=== PATIENT | female | born 1990 | race Caucasian/White ===

== ENCOUNTER → 2016-06-22 | Outpatient (CLI) | payer BC ==
[~2016-06-22] MED LIST: albuterol
[2016-06-22 18:43] LABS: URINE APPEARANCE CLEAR (CLEAR); URINE BILIRUBIN NEG (NEG); URINE COLOR YELLOW; URINE EPITHELIAL CELL AUTO >30 /lpf (0-5); URINE NITRITE NEG (NEG); URINE SPECIFIC GRAVITY 1.018 (1.000-1.030); UROBILINOGEN NEG (NEG)
[2016-06-22 18:47] LABS: MANUAL MICROSCOPIC REQUIRED? NO; REVIEW REQ? NO
== END | disposition home or self-care (01) ==
LOC: C.LABSPEC 16:45
PROVIDERS: ATTEND Obstetrics & Gynecology
DX: Z34.81 Encounter for supervision of other normal pregnancy, first trimester (principal)

== ENCOUNTER → 2016-06-29 | Outpatient (CLI) | payer BC ==
[2016-06-29 13:27] LABS: BASO % 0.2 %; BASO ABS # 0.02 K/uL (0-0.2); COMPLETE YES; EOS % 1.1 %; IG% 0.2 %; LYMPH % 23.9 %; LYMPH ABS # 2.18 K/uL (1.2-3.4); MEAN CELL VOLUME 90.3 fL (80-100); MEAN CORPUSCULAR HEMOGLOBIN 30.4 pg (25-34); MEAN CORPUSCULAR HGB CONC 33.7 g/dl (32-36); MEAN PLATELET VOLUME 12.7 fL (7.4-10.4); NEUT % 69.6 %; PLATELET COUNT 199 K/uL (130-400); RED BLOOD COUNT 4.21 M/uL (4.2-5.4); WHITE BLOOD COUNT 9.13 K/uL (4.8-10.8)
== END | disposition home or self-care (01) ==
LOC: C.LAB1850 12:16
PROVIDERS: ATTEND Obstetrics & Gynecology
DX: Z34.81 Encounter for supervision of other normal pregnancy, first trimester (principal); Z01.419 Encounter for gynecological examination (general) (routine) without abnormal findings; R87.616 Satisfactory cervical smear but lacking transformation zone

== ENCOUNTER → 2016-06-29 | Outpatient (CLI) | payer BC ==
[2016-07-02 02:40] LABS: CHLAMYDIA TRACH RNA*** NOT DETECTED (NOT DETECTED); GC (NEIS GONORRHOEAE)RNA** NOT DETECTED (NOT DETECTED)
== END | disposition home or self-care (01) ==
LOC: C.LABSPEC 15:29
PROVIDERS: ATTEND Obstetrics & Gynecology
DX: Z34.81 Encounter for supervision of other normal pregnancy, first trimester (principal)

== ENCOUNTER → 2016-08-26 | Outpatient (CLI) | payer BC ==
[2016-08-26 19:58] LABS: GTGD 50 Grams
== END | disposition home or self-care (01) ==
LOC: C.LAB1850 14:00
PROVIDERS: ATTEND Obstetrics & Gynecology
DX: Z34.82 Encounter for supervision of other normal pregnancy, second trimester (principal)

== ENCOUNTER → 2016-09-09 | Outpatient (CLI) | payer BC | END | disposition home or self-care (01) | LOC: C.LAB1850 09:09 | PROVIDERS: ATTEND Obstetrics & Gynecology | DX: O28.1 Abnormal biochemical finding on antenatal screening of mother (principal); Z3A.00 Weeks of gestation of pregnancy not specified ==

== ENCOUNTER → 2016-11-15 | Outpatient (CLI) | payer BC ==
[2016-11-15 10:34] LABS: HEMATOCRIT 34.8 % (37-47)
[2016-11-15 15:14] LABS: URINE APPEARANCE CLEAR (CLEAR); URINE BILIRUBIN NEG (NEG); URINE COLOR YELLOW; URINE NITRITE NEG (NEG); URINE PH 6.5 (4.5-7.5); URINE SPECIFIC GRAVITY 1.011 (1.000-1.030); UROBILINOGEN NEG (NEG)
[2016-11-15 15:16] LABS: MANUAL MICROSCOPIC REQUIRED? NO; REVIEW REQ? YES
[2016-11-15 15:25] LABS: URINE EPITHELIAL CELL AUTO 20-30 /lpf (0-5)
== END | disposition home or self-care (01) ==
LOC: C.LAB1850 09:15
PROVIDERS: ATTEND Obstetrics & Gynecology
DX: Z34.82 Encounter for supervision of other normal pregnancy, second trimester (principal)

== ENCOUNTER → 2017-01-13 | Outpatient (CLI) | payer BC, OTHER | END | disposition home or self-care (01) | LOC: C.LABSPEC 16:12 | PROVIDERS: ATTEND Obstetrics & Gynecology | DX: O24.410 Gestational diabetes mellitus in pregnancy, diet controlled (principal); Z3A.00 Weeks of gestation of pregnancy not specified ==

== ENCOUNTER 2017-02-03 10:23 | Inpatient (IN) | payer BC ==
[~2017-02-03] VITALS: Ht 162.6 cm; Wt 76.0 kg
[2017-02-03] MEDS ORDERED: LACTATED RINGER'S 1000ML 1,000 ML IV PRN (10:50)
[2017-02-03] MEDS ORDERED: LACTATED RINGER'S 1000ML 1,000 ML IV SCH (10:50)
[2017-02-03 11:16] LABS: HEMATOCRIT 36.5 % (37-47); MEAN CELL VOLUME 90.3 fL (80-100); MEAN CORPUSCULAR HEMOGLOBIN 29.7 pg (25-34); MEAN CORPUSCULAR HGB CONC 32.9 g/dl (32-36); PLATELET COUNT 144 K/uL (130-400); RED BLOOD COUNT 4.04 M/uL (4.2-5.4); WHITE BLOOD COUNT 16.94 K/uL (4.8-10.8)
[2017-02-03] MEDS ORDERED: EpHEDrine SULFATE INJ 50 MG/ML AMP ONE (11:21)
[2017-02-03] MEDS ORDERED: BUPIVACAINE 0.25% 30 ML VIAL ONE (11:21)
[2017-02-03] MEDS ORDERED: FENTANYL 2MCG/ML ROPIV 1.25MG/ML 100ML BAG EPI ONE (11:21)
[2017-02-03] MEDS ORDERED: FENTANYL CITRATE INJ 50 MCG/1 ML 2 ML VIAL ONE (11:21)
[2017-02-03 12:10] VITALS: Ht 162.6 cm; Wt 76.0 kg
[2017-02-03] MEDS ORDERED: DiphenhydrAMINE HCL 50 MG/ML VIAL IV PRN (12:15)
[2017-02-03] MEDS ORDERED: LACTATED RINGER'S 1000ML 500 ML IV PRN (12:15)
[2017-02-03] MEDS ORDERED: EpHEDrine SULFATE INJ 50 MG/ML AMP IV PRN (12:15)
[2017-02-03] MEDS ORDERED: FENTANYL 2MCG/ML ROPIV 1.25MG/ML 100ML BAG EPI PRN (12:15)
[2017-02-03] MEDS ORDERED: NALOXONE HCL INJ 0.4 MG/1 ML VIAL/CARP IV PRN (12:15)
[2017-02-03] MEDS ORDERED: NALOXONE HCL INJ 1 MG in SODIUM CHLORIDE 0.9% 1000ML 1,000 ML IV PRN (12:15)
[2017-02-03] MEDS ORDERED: NALBUPHINE HCL INJ 10 MG/ML AMP IV PRN (12:15)
[2017-02-03] MEDS ORDERED: albuterol (12:38)
[2017-02-03] MEDS ORDERED: OXYTOCIN 30 UNITS/500ML NSS IV ONE (14:31)
[2017-02-03] MEDS ORDERED: ACETAMINOPHEN 325 MG TAB PO PRN (15:30)
[2017-02-03] MEDS ORDERED: DIPHTHERIA/TETANUS/PERTUSSIS 0.5 ML SYR/VIAL IM. ONE (15:30)
[2017-02-03] MEDS ORDERED: BENZOCAINE 20% AER SPR 82.5 GM CAN EXT PRN (15:30)
[2017-02-03] MEDS ORDERED: LANOLIN OINT EXT PRN ×2 (15:30)
[2017-02-03] MEDS ORDERED: HYDROCORTISONE ACETATE 25 MG SUPP PR PRN (15:30)
[2017-02-03] MEDS ORDERED: OXYCODONE/ACETAMINOPHEN 5-325 TAB PO PRN (15:30)
[2017-02-03] MEDS ORDERED: SUPERCREAM 0.870 % 15GM JAR EXT PRN (15:30)
[2017-02-03] MEDS ORDERED: OXYTOCIN 30 UNITS/500ML NSS IV PRN (15:30)
--- NOTE | 2017-02-03 15:43 | Medical Student: [facility] ---
Medical Student Delivery Note Pre-op Dx: Term IUP at 39-5, spontaneous onset of labor Post-op Dx: Same Procedure: epidural, Pitocin augmentation, /, bilateral labial repair Surgeon: Dr. Mcnair Anesthesia: epidural EBL: 250cc Procedure: Pt is a E5G7-2-4-1 who presented to labor and delivery in active labor at 39-5. She underwent epidural anesthesia and Pitocin augmentation. Pt progressed to C/C/+2 and pushed for approximately 20 minutes to delivery of a viable female infant over an intact perineum in left occiput anterior position. There was no nuchal cord. The nose and mouth were bulb suctioned. The rest of the infant was delivered without difficulty. The infant was placed on the maternal abdomen and the cord was clamped and cut by the father of the . The placenta was delivered S/I/3VC. Fundus was firm and lochia was minimal. A bilateral labial tear was repaired in the standard fashion using 4-0 Vicryl. Mother was doing well at the end of the delivery. Infant's cry was weak and therefore taken to the nursery for CPAP. Apgars 5/6/7. Weight pending.
--- NOTE | 2017-02-03 17:56 | Anesthesia Procedure Note ---
Anesthesia Epidural Removal Nt Date & Time Feb 03, 2017 at 17:56 Vital Signs Pain Intensity: 10.0 Notes Mental Status: alert / awake / arousable, participated in evaluation Nausea / Vomiting: adequately controlled Pain: adequately controlled Airway Patency, RR, SpO2: stable & adequate BP & HR: stable & adequate Hydration State: stable & adequate Neuraxial Anesthesia: was administered, sensory block is resolving Anesthetic Complications: no major complications apparent, pt satisfied with anesthetic care Epidural: removed without complications, with tip intact
[2017-02-03] MEDS: IBUPROFEN 600 MG TAB PO PRN (18:36)
[2017-02-03 18:43] VITALS: BP 118/81; PULSE 125; TEMP 37.7
--- NOTE | 2017-02-03 18:55 | DELIVERY SUMMARY ---
DATE OF OPERATION: 02/03/2017 PREOPERATIVE DIAGNOSIS: 1. Intrauterine at 39-5/7 weeks. 2. Spontaneous rupture of membranes with active labor. 3. Previous history of delivery for cephalopelvic disproportion. POSTOPERATIVE DIAGNOSES: Same. PROCEDURES: 1. Epidural anesthesia. 2. Normal spontaneous vaginal delivery. 3. Bilateral labial laceration with repair. SURGEON: Olga Mcnair MD. ANESTHESIA: Epidural. ESTIMATED BLOOD LOSS: 400 mL. DESCRIPTION OF PROCEDURE: The patient presented to labor and delivery noting leaking of clear fluid and onset of contractions. She was 4 cm in the office and was evaluated and found to be 5-6, 90%, -2 station. She was admitted for labor. She was GBS negative. She underwent an epidural anesthesia and then progressed to complete, complete, +1-2 station. Her EFM was always Category 1. She was allowed to labor down for 45 minutes and then pushed effectively to deliver a viable female infant in MIRZA presentation. There was no nuchal cord. The nose and mouth were bulb suctioned and the rest of the were then delivered without difficulty. The was placed on the maternal abdomen for drying and attention and the cord was clamped and cut at 1 minute of life. Cord blood and blood gases were obtained. Placenta was delivered spontaneously intact with a 3-vessel cord. Cervix, sulci, rectum and perineum were examined and found to be intact. There was a small hematoma about the size of a grape right at the posterior introitus that was not enlarging and was just observed. Bilateral labial lacerations were repaired with 4-0 and 3-0 Vicryl in an interrupted fashion. Hemostasis obtained with dilute Pitocin and fundal massage. Apgars and weight pending at the time of this dictation. Mother and baby doing well at the end of the delivery. I attest to the content of the Intraoperative Record and any orders documented therein. Any exceptions are noted below. MTDD
[2017-02-03 19:30] VITALS: BP 119/75; PULSE 84; TEMP 37.1
[2017-02-03] MEDS: DOCUSATE SODIUM 100 MG CAP PO SCH (20:32)
[2017-02-03 23:30] VITALS: BP 105/70; PULSE 96; TEMP 36.8
[2017-02-04 03:45] VITALS: BP 103/71; PULSE 88; TEMP 36.8
[2017-02-04] MEDS: IBUPROFEN 600 MG TAB PO PRN ×4 (03:50→20:13)
[2017-02-04 06:40] LABS: HEMATOCRIT 30.2 % (37-47)
--- NOTE | 2017-02-04 07:00 | Medical Student: [facility] ---
Med Student TECHNICAL WRITER Progress Nt Date of Service Feb 04, 2017. Subjective conversation w/ patient Notes: 26yo V8M0-7-5-3 post- day 1 of at 39.5. Pt is feeling "well." Pt reports some moderate cramping during the night controlled with Motrin. Ambulating w/o lightheadedness or dizziness. Eating a regular diet w/o nausea or vomiting. Slept OK last night. No BM since delivery. Voiding w/o difficulty or pain. Bleeding/lochia described by pt as "heavy". Pt is currently using a breast pump and plans to breast feed . Denies fever, chills, and calf pain. Rest of ROS is negative. Objective Vital Signs Date Time Temp Pulse Resp B/P (MAP) Pulse Ox O2 Delivery O2 Flow Rate FiO2 02/04/17 03:45 36.8 88 18 103/71 (82) Room Air 02/03/17 23:30 36.8 96 16 105/70 (82) Room Air 02/03/17 23:30 Room Air 02/03/17 19:30 37.1 84 16 119/75 (90) Room Air 02/03/17 18:50 Room Air 02/03/17 18:43 37.7 125 20 118/81 (93) Room Air Physical Exam General Appearance: WELL-APPEARING, WD/WN, NO APPARENT DISTRESS Respiratory/Chest: lungs clear, normal breath sounds Cardiovascular: regular rate, rhythm, no murmur Abdomen: normal bowel sounds, non tender, soft Fundus: Firm, Non-Tender, Relation to Umbilicus (right of midline and one finger below umbilicus) Extremities: no pedal edema, no calf tenderness Laboratory Results Last 24 Hours Test 02/03/17 11:02 02/04/17 06:29 White Blood Count 16.94 K/uL Red Blood Count 4.04 M/uL Hemoglobin 12.0 g/dL 10.1 g/dL Hematocrit 36.5 % 30.2 % Mean Corpuscular Volume 90.3 fL Mean Corpuscular Hemoglobin 29.7 pg Mean Corpuscular Hemoglobin Concent 32.9 g/dl RDW Standard Deviation 44.8 fL RDW Coefficient of Variation 13.7 % Platelet Count 144 K/uL Mean Platelet Volume 12.0 fL Assessment and Plan Post- Day Number: 1 Continue Routine Care: 26yo L7M3-2-1-0 day 1: vital signs reviewed and WNL Hgb 12.0 on admission; 10.1 this AM- stable A+/GBSneg/RI Continue to monitor lochia/bleeding, pain, and healing from b/l labial tear repair. Control pain with Motrin/Tylenol.
--- NOTE | 2017-02-04 07:33 | Progress Note ---
Subjective Feb 04, 2017. Subjective conversation w/ patient, physical exam Ambulation: ambulating normally Voiding: no voiding problems Passing Gas: Yes Diet Tolerance: Regular Diet Lochia: Moderate Feeding Type: Breast Feeding Pain: CONTROLLED Review of Systems Respiratory: No shortness of breath Cardiac: No chest pain Abdomen: No nausea, No vomiting Female : No dysuria Objective Vital Signs Date Time Temp Pulse Resp B/P (MAP) Pulse Ox O2 Delivery O2 Flow Rate FiO2 02/04/17 03:45 36.8 88 18 103/71 (82) Room Air 02/03/17 23:30 36.8 96 16 105/70 (82) Room Air 02/03/17 23:30 Room Air 02/03/17 19:30 37.1 84 16 119/75 (90) Room Air 02/03/17 18:50 Room Air 02/03/17 18:43 37.7 125 20 118/81 (93) Room Air Physical Exam General Appearance: WELL-APPEARING, WD/WN, NO APPARENT DISTRESS Respiratory/Chest: lungs clear, normal breath sounds Cardiovascular: regular rate, rhythm, no gallop Abdomen: normal bowel sounds, soft Fundus: Firm, Non-Tender, Relation to Umbilicus (1 BELOW U) Extremities: non-tender, normal inspection Laboratory Results Last 24 Hours Test 02/03/17 11:02 02/04/17 06:29 White Blood Count 16.94 K/uL Red Blood Count 4.04 M/uL Hemoglobin 12.0 g/dL 10.1 g/dL Hematocrit 36.5 % 30.2 % Mean Corpuscular Volume 90.3 fL Mean Corpuscular Hemoglobin 29.7 pg Mean Corpuscular Hemoglobin Concent 32.9 g/dl RDW Standard Deviation 44.8 fL RDW Coefficient of Variation 13.7 % Platelet Count 144 K/uL Mean Platelet Volume 12.0 fL Assessment and Plan Post- Day#: 1 Continue Routine Care: now 2, 39-6 12/7 at 1400. A+/GBS-/RI Hgb 12.0, today 10.1. Pt doing well clinically. Continue routine care, monitor lochia, control pain with motrin/tylenol, encourage ambulation and . Likely DC tomorrow. REY MCGINNIS FMR PGY 1 Resident Physician Supervision Note: I interviewed and examined the patient. Discussed with Dr. Mcginnis and agree with findings and plan as documented in the note. Any exceptions or clarifications are listed here: Doing well. Baby still on the bed. She is pumping. Documented By: Olga Mcnair Resident Tracking Resident Involvement: Resident Care Provided Care Provided: OB Delivery
[2017-02-04 08:00] VITALS: BP 111/72; PULSE 80; TEMP 36.8
[2017-02-04] MEDS: DOCUSATE SODIUM 100 MG CAP PO SCH ×2 (08:27→20:12)
[2017-02-04] MEDS: PRENATAL VITAMIN TAB PO SCH (08:27)
--- NOTE | 2017-02-04 10:10 | Discharge Instructions ---
Discharge Instructions Date of Service Feb 04, 2017. Admission Reason for Admission: R/O Rupture Of Membranes Discharge Discharge Diagnosis / Problem: Spontaneous Vaginal Delivery Discharge Goals Goal(s): Routine recovery after delivery Medications Continue Dispensed Medications: supercream, dermaplast, tucks, lansinoh Activity Recommendations Activity Limitations: per Instructions/Follow-up section . Instructions / Follow-Up Instructions / Follow-Up ACTIVITY RECOMMENDATIONS: * Gradual return to full activity over the next 2-3 weeks. * No lifting - nothing heavier than baby over the next 2-3 weeks. * Do not engage in vigorous exercise, sexual activity or sports until cleared by your physician. * Do not drive or operate any motorized equipment until cleared by your physician. * You may shower/bathe daily. MEDICATIONS: For discomfort or pain, you may use Acetaminophen (Tylenol), Ibuprofen (Advil), or Naproxen (Aleve) following the package directions. For constipation you may use Colace following the package directions. BREAST CARE: If you are not breast feeding: * Wear a supportive bra 24 hours a day for one to two weeks. * Avoid stimulating your breasts and nipples as much as possible during the first few weeks after delivery. * When taking a shower, have the warm water hit your back, not breasts. * When your breasts feel full, apply ice packs. Usually three to four times a day helps ease the discomfort. * Take a mild pain medication (Tylenol / Motrin) when you are uncomfortable. If breast feeding: * Use breast milk to lubricate nipples. Lansinoh cream may be used for sore nipples. You do not need to remove cream prior to breast feeding. If using a different brand of cream, check the label for directions regarding removal of cream prior to nursing. * Wear a supportive bra. * If having problems with breasts or breast feeding, call a content management consultant or your health care provider. EPISIOTOMY CARE: After delivery, if you have an episiotomy (stitches), the following steps will ease discomfort and aid healing. * For the first 24 hours after delivery, place ice packs next to your episiotomy to help reduce swelling. * After the first 24 hour-period, sitz baths, either portable or in the tub, are suggested. A shower with a shower arm sprayed over the episiotomy may be comforting. * Anuradha care should be done after each voiding and bowel movement. Squirt warm water from a plastic bottle over the perineum (region of the body between the anus and urinary opening) and pat dry. * Use Dermoplast to ease discomfort. Shake container. [place] directly over the episiotomy. Place a Tucks on a clean sanitary pad next to your episiotomy. SPECIAL CARE INSTRUCTIONS: When you are discharged from the hospital, it is important for you to follow the instructions listed below: * During the first week at home, you should be able to care for yourself and your baby. In addition, the usual light household activities are encouraged. * Limit your activities to the way you feel. Do not try to clean the house or move furniture. Be sensible. * If you actively engage in sports and have done so up until the time of your delivery, you may resume these activities as soon as you feel able. This may take up to one month or even longer. Use good judgment. * Continue to take your vitamins for at least six weeks after the of your baby. * Your diet need not be limited unless you were on a special diet before your delivery. Breast-feeding mothers need around 2500 calories per day and at least 64-80 ounces of fluid per day (8 to 10 glasses). * You should eat foods from the four major food groups. Crash diets or fad diets are to be avoided. Eating lean meats, fresh fruits and vegetables, low-fat dairy products, high fiber foods and a regular exercise program, will help you get back to your pre- weight without putting your health at risk. * Constipation is sometimes a problem after delivery. Take a mild laxative as needed. If breast feeding, Milk of Magnesia is acceptable to use. You may use a suppository or Fleets enema if no episiotomy. * A daily shower or tub bath is suggested. Be sure to thoroughly and gently dry the perineum. * A bloody vaginal discharge will usually continue until around four weeks post . A small amount of bleeding may continue for as long as six weeks. Vaginal discharge changes from the bright red bleeding after delivery to pink then brownish and finally yellowish-pink before becoming white and disappearing. * Bleeding may increase with activity. Your first period may come in 4-8 weeks. If you are breast feeding, your period may be delayed even longer. * [place] (sex) can begin whenever both you and your partner feel comfortable and do not have any form of genital infection. It is recommended that you wait at least six weeks for internal and external healing to occur. If you have questions, please talk to your health care practitioner. A condom should be used to prevent infection and . * Foreplay, gentle intercourse and lubrication is very important the first several times to prevent pain. A water-based lubricant such as K-Y jelly or Astroglide may be used. * If you have RH negative blood and your baby is RH positive, you will receive RHOGAM by injection prior to discharge. The nurse will give you a card to keep with you that has the date and place that you received RHOGAM after delivery. * During your care, you had a Rubella screen done to check for the presence of rubella antibodies in your blood. If your test was negative, you will receive a Rubella vaccine prior to discharge. This vaccine may cause a fever, soreness at the injection site and flu-like symptoms. If these symptoms persist, notify your health care practitioner. is not advised for one month after a Rubella vaccine. * Verbalizes understanding of car seat law as reviewed with patient nursing. * Car Seat hand-out given and reviewed with patient by nursing. * Shaken baby information reviewed with patient by nursing. Call you doctor if: * Heavy bleeding (saturating several pads an hour) or passing clots the size of your fist. * A fever >101 degrees F (38.3 degrees C) on two occasions four hours apart and /or chills. * Unusual pain in the pelvic or vaginal areas. * "Baby Blues" lasting longer than two weeks. If you have any questions or concerns, call your health care practitioner at . FOLLOW UP VISIT: * Please call the office at to schedule a 6 week examination. It is important you keep this appointment. It is important for you to make arrangements for either yearly or twice yearly check-ups thereafter. Current Hospital Diet Patient's current hospital diet: Regular OB Diet Discharge Diet Recommended Diet: Regular OB Diet Pending Studies Studies pending at discharge: no Medical Emergencies . Who to Call and When: Medical Emergencies: If at any time you feel your situation is an emergency, please call 911 immediately. . Non-Emergent Contact Non-Emergency issues call your: Primary Care Provider . . "Provider Documentation" section prepared by Dolly Mcginnis. . VTE Core Measure Inpt VTE Proph given/why not?: Treatment not indicated
[2017-02-04 15:45] VITALS: BP 131/73; TEMP 36.9
[2017-02-04 20:15] VITALS: PULSE 102; TEMP 37.1
[2017-02-04 23:30] VITALS: BP 107/67; PULSE 96; TEMP 36.8
--- NOTE | 2017-02-05 07:15 | Progress Note ---
Subjective Feb 05, 2017. Subjective conversation w/ patient, physical exam, chart review, lab review Ambulation: ambulating normally Voiding: no voiding problems Passing Gas: Yes Diet Tolerance: Regular Diet Lochia: Moderate Feeding Type: Breast Feeding Pain: controlled Review of Systems Respiratory: No shortness of breath Female : No dysuria Objective Vital Signs Date Time Temp Pulse Resp B/P (MAP) Pulse Ox O2 Delivery O2 Flow Rate FiO2 02/04/17 23:30 Room Air 02/04/17 23:30 36.8 96 20 107/67 (80) Room Air 02/04/17 20:15 37.1 102 44 Room Air 02/04/17 15:45 36.9 18 131/73 (92) Room Air 02/04/17 15:45 Room Air 02/04/17 09:00 Room Air 02/04/17 08:00 36.8 80 18 111/72 (85) Room Air Physical Exam General Appearance: WELL-APPEARING, WD/WN, NO APPARENT DISTRESS Respiratory/Chest: lungs clear, normal breath sounds, no respiratory distress Cardiovascular: regular rate, rhythm, no gallop Abdomen: normal bowel sounds, soft Fundus: Firm, Non-Tender, Relation to Umbilicus (1 below U) Extremities: non-tender, normal inspection Assessment and Plan Post- Day#: 2 Continue Routine Care: Resident Physician Supervision Note: I interviewed and examined the patient. Discussed with Dr. Mcginnis and agree with findings and plan as documented in the note. Any exceptions or clarifications are listed here: [None] Documented By: Belem Cabrera now 2, 39-6 12/7 at 1400. A+/GBS-/RI Hgb 12.0, 10.1. Stable. Pt doing well clinically. Continue routine care, monitor lochia, control pain with motrin/tylenol, encourage ambulation and . Pt counselled on DC instructions. REY MCGINNIS FMR PGY 1. Resident Tracking Resident Involvement: Resident Care Provided Care Provided: OB Delivery
[2017-02-05] MEDS ORDERED: PRENTAB26 PO (07:16)
[2017-02-05] MEDS: PRENATAL VITAMIN TAB PO SCH (08:14)
[2017-02-05] MEDS: DOCUSATE SODIUM 100 MG CAP PO SCH (08:14)
[2017-02-05 08:15] VITALS: BP 109/72; PULSE 96; TEMP 37
[2017-02-05] MEDS: IBUPROFEN 600 MG TAB PO PRN ×2 (08:15→15:57)
[2017-02-05 16:00] VITALS: BP 107/72; PULSE 76; TEMP 37
[2017-02-05 17:05] VITALS: BP_DIAS 72; PULSE 76; TEMP 37
== END 2017-02-05 17:05 | disposition home or self-care (01) | DRG 775 ==
LOC: C.OPB 10:23 → C.LD 10:23 → C.OPB 10:52 → C.OBG 18:08 → EDSTATUS 02-05 10:35
PROVIDERS: ADMIT Obstetrics & Gynecology; ATTEND Obstetrics & Gynecology
PROC: 0HQ9XZZ Repair Perineum Skin, External Approach (ICD-10-PCS; principal; 2017-02-03)
PROC: 10E0XZZ Delivery of Products of Conception, External Approach (ICD-10-PCS; principal; 2017-02-03)
DX: O70.0 First degree perineal laceration during delivery (principal); Z37.0 Single live birth; Z3A.39 39 weeks gestation of pregnancy

== ENCOUNTER → 2017-04-29 | Outpatient (CLI) | payer BC, OTHER ==
[~2017-04-29] MED LIST changes: +PRENTAB26 PO
== END | disposition home or self-care (01) ==
LOC: C.LABSPEC 13:11
PROVIDERS: ATTEND Physician Assistant
DX: Z39.2 Encounter for routine postpartum follow-up (principal)

== ENCOUNTER → 2017-04-29 | Outpatient (CLI) | payer BC | END | disposition home or self-care (01) | LOC: C.LAB1850 08:51 | PROVIDERS: ATTEND Obstetrics & Gynecology | DX: O24.410 Gestational diabetes mellitus in pregnancy, diet controlled (principal) ==